=== PATIENT | male | born 2000 | race Caucasian/White ===

== ENCOUNTER 2022-05-19 07:39 | Outpatient (CLI) | payer OTHER ==
[~2022-05-19 07:39] MED LIST: CLARITIN10 MG PO; SINGULAIR5 MG PO
== END 2022-05-19 08:05 | disposition home or self-care (01) ==
LOC: LAB 07:39
DX: N39.0 Urinary tract infection, site not specified (principal); I10 Essential (primary) hypertension; K59.00 Constipation, unspecified; R30.0 Dysuria